=== PATIENT | female | born 1970 | race Caucasian/White ===

== ENCOUNTER 2017-03-03 13:48 | Emergency (ER) | payer BC ==
[~2017-03-03] VITALS: Ht 175.3 cm; Wt 94.1 kg
[~2017-03-03 13:48] MED LIST: DAILY MULTIPLE1 EACH PO; FAMOTIDINE20 MG PO; MEGESTROL ACETA20 MG PO; MOBIC15 MG PO; MOTRIN800 MG PO; OXYBUTYNIN CHLO10 MG PO; PERCOCET 5/31 TABLET PO
[2017-03-03] MEDS ORDERED: NARCAN4 MG NS (14:22)
[2017-03-03 14:49] VITALS: BP 123/81
== END 2017-03-03 15:07 | disposition left against medical advice (07) ==
LOC: EME 13:48
DX: T40.601A Poisoning by unspecified narcotics, accidental (unintentional), initial encounter (principal); K21.9 Gastro-esophageal reflux disease without esophagitis; B19.20 Unspecified viral hepatitis C without hepatic coma; Z87.891 Personal history of nicotine dependence
CPT/HCPCS: 80048; 85027; 93005; 99281; 99285; J2310